=== PATIENT | male | born 1990 | race Caucasian/White ===

== ENCOUNTER 2017-10-10 00:56 | Emergency (ER) | payer SELFPAY ==
[~2017-10-10] VITALS: Ht 182.9 cm; Wt 79.5 kg
[~2017-10-10 00:56] MED LIST: NO HOME MEDICATIONS
[2017-10-10 01:02] VITALS: TEMP 97.9
[2017-10-10 01:23] LABS: COLLECTION METHOD CLEAN CATCH
[2017-10-10 01:27] LABS: BASO # 0.1 (0.0-0.2); BASO % 0.4 % (0.0-2.0); EOS % 0.1 % (0-4.0); GRAN # 11.1 (1.4-6.5); GRAN % 81.6 % (42.2-75.2); HEMATOCRIT 42.2 % (42.0-52.0); HEMOGLOBIN 15.1 g/dl (13.5-18.0); LYMPH # 1.6 (1.2-3.4); LYMPH % 11.7 % (20.0-51.0); MEAN CELL VOLUME 88 fl (80.0-100.0); MEAN CORPUSCULAR HEMOGLOBIN 32 pg (27.0-31.0); MEAN CORPUSCULAR HGB CONC 36 g/dl (33.0-37.0); MEAN PLATELET VOLUME 8.8 fl (7.4-10.4); MONO # 0.8 (0.1-0.6); MONO % 5.8 % (1.7-9.3); PLATELET COUNT 295 K/mm3 (130-400); RED BLOOD COUNT 4.78 M/mm3 (4.20-5.60); REDCELL DISTRIBUTION WIDTH-CV 12.2 % (11.5-14.5)
[2017-10-10 01:32] LABS: MUCOUS Present /lpf; PH 7 (5-8); SQUAMOUS EPITHELIAL 0-2 /hpf; URINE APPEARANCE Hazy; URINE BACTERIA None Seen /hpf; URINE BILIRUBIN Negative (NEGATIVE); URINE BLOOD Negative (NEGATIVE); URINE COLOR Yellow; URINE GLUCOSE Negative (NEGATIVE); URINE KETONE Trace (NEGATIVE); URINE LEUKOCYTE ESTERASE Negative (NEGATIVE); URINE NITRATE Negative (NEGATIVE); URINE PROTEIN(semi-quant) 1+ (NEGATIVE)
[2017-10-10 01:39] LABS: ALANINE AMINOTRANSFERASE 29 U/L (21-72); ALBUMIN 4.8 gm/dL (3.5-5.0); ALKALINE PHOSPHATASE 56 U/L (50-136); ANION GAP 16 mmol/L (7-16); AST,SGOT 23 U/L (15-37); BILIRUBIN,TOTAL 0.6 mg/dL (0.0-1.0); BLOOD UREA NITROGEN 12 mg/dL (9-20); CALCIUM 9.4 mg/dL (8.4-10.2); CARBON DIOXIDE 23 mmol/L (22-30); CHLORIDE 102 mmol/L (98-107); CREATININE, serum 1.03 mg/dL (0.66-1.25); GLUCOSE 172 mg/dL (74-106); LIPASE 155 U/L (23-300); POTASSIUM 3.6 mmol/L (3.4-5.0); SODIUM 141 mmol/L (137-145); TOTAL PROTEIN 7.8 gm/dL (6.4-8.2)
[2017-10-10 01:43] LABS: C-REACTIVE PROTEIN < 0.5 mg/dL (0.0-0.9)
[2017-10-10] MEDS ORDERED: ATIVAN 1MG T1 MG/TAB PO (03:02)
[2017-10-10] MEDS ORDERED: ATARAX50 MG PO (03:02)
[2017-10-10] MEDS ORDERED: ZOFRAN ODT4 MG PO (03:15)
[2017-10-10] MEDS ORDERED: NORCO 325 MG-51 TAB PO (03:15)
[2017-10-10 03:29] VITALS: BP 126/84; PULSE 52
== END 2017-10-10 03:33 | disposition home or self-care (01) ==
LOC: COL.ER 00:56
PROVIDERS: Physician Assistant
DX: N20.0 Calculus of kidney (principal); Z88.0 Allergy status to penicillin
CPT/HCPCS: J1885; J2405; J3010; J7030; Q9967

== ENCOUNTER 2018-11-18 12:27 | Emergency (ER) | payer SELFPAY ==
[~2018-11-18] VITALS: Ht 182.9 cm; Wt 75.0 kg
[~2018-11-18 12:27] MED LIST changes: +ATARAX50 MG PO; +ATIVAN 1MG T1 MG/TAB PO; +NORCO 325 MG-51 TAB PO; +ZOFRAN ODT4 MG PO
[2018-11-18 12:29] VITALS: TEMP 98.4
[2018-11-18 15:55] VITALS: BP 103/69; PULSE 67
== END 2018-11-18 15:57 | disposition home or self-care (01) ==
LOC: COL.ER 12:27
DX: S86.912A Strain of unspecified muscle(s) and tendon(s) at lower leg level, left leg, initial encounter (principal); R40.2410 Glasgow coma scale score 13-15, unspecified time; X58.XXXA Exposure to other specified factors, initial encounter
CPT/HCPCS: L1846